=== PATIENT | female | born 1970 | race Caucasian/White ===

== ENCOUNTER 2016-04-20 08:37 | Outpatient (RCR) | payer OTHER ==
[~2016-04-20 08:37] MED LIST: BENTYL 10MG10 MG/CAP PO; COUMADIN 1010 MG/TAB PO; FISH OIL1000 MG PO; K-DUR 10 MEQ T10 MEQ PO; LASIX 40MG TABL40 MG PO; MOTRIN 600600 MG/TAB PO
== END 2016-07-19 | disposition home or self-care (01) ==
LOC: WSOH
DX: M54.5 Low back pain (principal); X50.9XXA Other and unspecified overexertion or strenuous movements or postures, initial encounter; Y92.128 Other place in nursing home as the place of occurrence of the external cause; Y99.0 Civilian activity done for income or pay

== ENCOUNTER 2021-01-14 16:19 | Emergency (ER) | payer BC ==
[~2021-01-14] VITALS: Ht 172.7 cm; Wt 118.2 kg
[2021-01-14 17:28] VITALS: BP 138/64; PULSE 88; TEMP 98.4
== END 2021-01-14 17:30 | disposition home or self-care (01) ==
LOC: COL.ER 16:19
DX: M79.89 Other specified soft tissue disorders (principal); F17.200 Nicotine dependence, unspecified, uncomplicated; Z86.718 Personal history of other venous thrombosis and embolism; Z79.01 Long term (current) use of anticoagulants
CPT/HCPCS: J1650

== ENCOUNTER → 2021-01-15 | Outpatient (CLI) | payer BC | LOC: COL.VAS 07:57 | DX: M79.89 Other specified soft tissue disorders (principal); M79.605 Pain in left leg; L81.9 Disorder of pigmentation, unspecified ==

== ENCOUNTER → 2021-07-01 | Outpatient (CLI) | payer BC | LOC: ZCOL.LAB 10:54 | DX: R25.2 Cramp and spasm (principal) ==